=== PATIENT | male | born 1960 | race Caucasian/White ===

== ENCOUNTER → 2017-01-17 | Outpatient (CLI) | payer BC | END | disposition home or self-care (01) | LOC: LABWHC1 09:00 | PROVIDERS: ATTEND Orthopaedic Surgery Orthopaedic Surgery of the Spine | DX: Z01.812 Encounter for preprocedural laboratory examination (principal) | CPT/HCPCS: 86850; 86900; 86901 ==

== ENCOUNTER → 2017-02-11 | Outpatient (CLI) | payer BC ==
[2017-02-11 11:16] LABS: Basophils # (A) 0.1 k/uL (0-0.2); Basophils % (A) 1 %; Eosinophils # (A) 0.4 k/uL (0-0.7); Eosinophils % (A) 4 %; HCT 49.7 % (39.0-53.0); HGB 16.1 gm/dL (13.0-17.5); Lymphocytes # (A) 1.2 k/uL (1.0-4.8); Lymphocytes % (A) 10 %; MCH 31.2 pg (25.0-35.0); MCHC 32.4 g/dL (31.0-37.0); MCV 96.2 fL (80.0-100.0); Mean Platelet Volume 6.4; Monocytes # (A) 0.6 k/uL (0-1.0); Monocytes % (A) 5 %; Neutrophils % (A) 79 %; Platelet Count 365 k/uL (150-450); RBC 5.17 m/uL (4.30-5.90); RDW 12.7 % (11.5-15.5); WBC 11.3 k/uL (3.8-10.6)
[2017-02-11 11:17] LABS: Anion Gap 9 mmol/L; Blood Urea Nitrogen 20 mg/dL (9-20); Carbon Dioxide 29 mmol/L (22-30); Chloride 97 mmol/L (98-107); Glucose 99 mg/dL (74-99); Potassium 5.5 mmol/L (3.5-5.1); Sodium 135 mmol/L (137-145)
[2017-02-11 11:18] LABS: INR 1.1 (<1.2); Partial Thromboplastin Time 25.7 sec (22.0-30.0); Prothrombin Time 10.4 sec (9.0-12.0)
== END | disposition home or self-care (01) ==
LOC: LABPAT 10:38
PROVIDERS: ATTEND Orthopaedic Surgery Orthopaedic Surgery of the Spine
DX: Z01.812 Encounter for preprocedural laboratory examination (principal); M79.81 Nontraumatic hematoma of soft tissue
CPT/HCPCS: 80048; 85025; 85610; 85730

== ENCOUNTER 2017-02-12 14:05 | Day surgery (SDC) | payer BC ==
[~2017-02-12 14:05] MED LIST: BACITRACIN 50,000 UNIT, POLYMYXIN B 500,000 UNIT in SODIUM CHLORIDE 0.9% IRRIGATIO 1,00... IRRIGATION ONE; ceFAZolin IN SWFI 2 GM/20 ML SYRINGE IVP ONE
[2017-02-12] MEDS ORDERED: CLINDAMYCIN 900 MG in DEXTROSE 5% IN WATER 50 ML IVPB ONE ×2 (14:30)
[2017-02-12] MEDS ORDERED: LIDOCAINE 1% 20 ML VIAL (10MG/ML) FOR IV START INTRADERMA ONE (14:53)
[2017-02-12] MEDS ORDERED: LACTATED RINGERS 1,000 ML IV ONE ×2 (14:55→16:56)
[2017-02-12] MEDS ORDERED: ONDANSETRON 4 MG/2 ML VIAL IVP STA (15:20)
[2017-02-12] MEDS ORDERED: DEXAMETHASONE SOD PHOSPHATE 10 MG/ML 1 ML VIAL IV STA (15:24)
[2017-02-12] MEDS ORDERED: fentaNYL (PF) 50 MCG/ML 2 ML AMP ONE (16:29)
[2017-02-12] MEDS ORDERED: MIDAZOLAM 2 MG/2 ML VIAL ONE (16:29)
[2017-02-12] MEDS ORDERED: SUCCINYLCHOLINE CHLORIDE 100 MG/5 ML SYR IV ONE (16:29)
[2017-02-12] MEDS ORDERED: PROPOFOL 10 MG/ML 20 ML VIAL IV ONE (16:29)
[2017-02-12] MEDS ORDERED: HYDROmorphone (PF) 1 MG/ML ONE (16:29)
[2017-02-12] MEDS ORDERED: LIDOCAINE 1% INJ 10MG/ML (20 ML MDV) ONE (16:29)
[2017-02-12] MEDS ORDERED: HYDROmorphone 1 MG/ML 1 ML SYRINGE IVP PRN ×2 (17:17)
[2017-02-12] MEDS ORDERED: DIAZEPAM 5 MG TAB PO PRN (17:17)
[2017-02-12] MEDS ORDERED: BENZOCAINE/MENTHOL LOZENG 1 EACH LOZENGE MUCOUS MEM PRN (17:17)
[2017-02-12] MEDS ORDERED: HYDROcodone/APAP 5-325MG 1 EACH TAB PO PRN (17:18)
[2017-02-12] MEDS ORDERED: ACETAMINOPHEN TAB 325 MG TAB PO PRN (17:18)
[2017-02-12] MEDS ORDERED: ONDANSETRON 4 MG/2 ML VIAL IVP PRN (17:18)
[2017-02-12] MEDS ORDERED: IBUPROFEN 800 MG TAB PO PRN (17:19)
[2017-02-12] MEDS ORDERED: SODIUM CHLORIDE 0.9% 1,000 ML IV SCH (17:30)
--- NOTE | 2017-02-12 17:41 | P.OP ---
Date of Procedure: 02/12/17 Preoperative Diagnosis: Postoperative localized hematoma at anterior cervical neck incision site status post anterior cervical discectomy and fusion on 01/29/2017 Postoperative Diagnosis: Same Anesthesia: GETA Pathology: other (Deep cultures sent to microbiology) Condition: stable Disposition: PACU Description of Procedure: BRIEF OPERATIVE NOTE Preoperative Diagnosis: Postoperative localized anterior cervical hematoma at anterior cervical spine incision site status post anterior cervical discectomy and fusion 01/29/2017 Postoperative Diagnosis: Same Procedure: Evacuation of hematoma anterior cervical spine, deep Irrigation Excisional debridement of denuded tissue at anterior cervical spine wound Surgeon: Dr. Ling Packaging Machine Operator: Mitchel HENDRICKS Anesthesia: General anesthesia Estimated blood loss: Less than 10 mL Complications: None apparent Components implanted: None Specimen: Deep culture sent to [facility] Disposition: To recovery room in good stable condition. OPERATIVE INDICATIONS The patient has had long-standing issues in their neck and upper extremities, and he underwent intracervical discectomy and fusion on 01/29/2017 as per his operative note for his cervical stenosis with disc herniation and upper extremity radiculopathy. The night of his surgery he had some swelling at his anterior cervical spine which resolved quickly after a dose of steroid medication. He was able to be discharged postoperative day 1 from his surgery and was doing fairly well but had some recurrence of his swelling approximately 1 week ago and then spontaneous drainage with clear blood-tinged fluid. This resolved the swelling he was not having problems in his neck or problems with his swallowing. He is not having any new problems his upper extremity. He is not having any significant changes in his swelling or any problems with breathing. We continue to monitor his local wound area and he had initial resolution. 2 days ago he had some increased swelling and recurrent drainage of a small amount of blood-tinged serous fluid. He was seen yesterday and we felt that it was best to go ahead to do aggressive evacuation of hematoma with washout of the area and exploration. The patient has been through conservative treatment. We discussed various treatment options including surgery, and the patient wishes to proceed with surgery We discussed the risk, patient's alternatives and benefits of surgery including but not limited to, risk of bleeding risk of infection, risk of need for further surgery, risk of decreased , loss of motion, muscle function, nerve damage, paralysis, heart attack, and . OPERATIVE SUMMARY After discussing all the risks, patient alternatives and benefits at length, the patient elected to proceed with surgical intervention, signed informed consent, and presented for their procedure. The patient was seen and examined in the preoperative holding area and the surgical site was marked. The patient was given antibiotics and brought to the operating room. The patient was positioned on the operating room table in a supine position being careful to pad any bony prominences and pressure points. The patient was sedated and intubated by anesthesia in standard fashion. Once the airway and C- spine were stabilized the patient's arms were padded and tucked at her side. The head was placed in a donut pad with the neck in good neutral alignment and position. We were careful to maintain the patient's cervical spine and good neutral alignment and position throughout. The patient was prepped and draped in a normal standard fashion. An appropriate timeout and keystone protocol performed. We were able to proceed with the surgery. The local wound area was infiltrated with local anesthetic. An incision was made transversely approximately 2-1/2 cm over the appropriate levels utilizing the previous incision site. Immediately under the skin there was some serous fluid and some evidence of hematoma which articulated. I was able take a deep culture and the platysma was split to achieve deep culture of the area. Was no evidence of purulence. There was no pus. There is no foul odor. There is no persistent bleeding. There is no persistent drainage. I was able to bluntly dissect down to the area. There is no evidence of any fluid collection at anterior cervical spine. There is no evidence of fluid collection at the plate. There is no drainage from the spine itself. There is no evidence of CSF leak. There is no pus. I was able to divide area of any denuded tissue area portions of soft tissue removed to allow improved healing at the site. I did not find any pus or any further fluid collections. I was able to proceed with closure. The subcutaneous tissue was closed with 3-0 PDS suture. The subcuticular tissue was closed with absorbable suture 3-0 PDS. The wound was cleaned and dried and dressed appropriately. The patient was woken up by anesthesia, extubated, transferred back gently to their hospital bed and brought to the recovery room in good stable condition. The patient will bable to be discharged from the hospital after appropriate postoperative care, medical management and monitoring. We will continue to follow them closely about the postoperative course Closely on an outpatient basis.
[2017-02-12] MEDS ORDERED: NON-FORMULARY DRUG (Fluticasone/Salmeterol [Advair 250-50 Diskus] 1 INHALATION) PO SCH (20:00)
[2017-02-12 23:02] VITALS: BMI 26.8
[2017-02-12 23:29] VITALS: BP 106/60; PULSE 90; RESP 16; TEMP 96.8
[2017-02-13] MEDS ORDERED: CLINDAMYCIN 900 MG in DEXTROSE 5% IN WATER 50 ML IVPB SCH ×2
[2017-02-13] MEDS ORDERED: SENNOSIDES-DOCUSATE SODIUM 1 EACH TAB PO SCH (09:00)
[2017-02-13] MEDS ORDERED: TAMSULOSIN 0.4 MG CAP.ER.24H PO SCH (09:00)
[2017-02-13] MEDS ORDERED: POTASSIUM PO SCH (09:00)
[2017-02-13] MEDS ORDERED: NON-FORMULARY DRUG (Rosuvastatin Calcium [Crestor] 20 MG) PO SCH (09:00)
[2017-02-13] MEDS ORDERED: METOPROLOL TARTRATE 25 MG TAB PO SCH (09:00)
[2017-02-13] MEDS ORDERED: ASPIRIN 325 MG TAB PO SCH (09:00)
[2017-02-13] MEDS ORDERED: LISINOPRIL 20 MG TAB PO SCH (09:00)
[2017-02-13] MEDS ORDERED: NON-FORMULARY DRUG (Cholecalciferol (Vitamin D3) [Vitamin D3] 2,000 UNIT) PO SCH (09:00)
== END 2017-02-12 18:35 | disposition home or self-care (01) ==
LOC: OR 14:05
PROVIDERS: ATTEND Orthopaedic Surgery Orthopaedic Surgery of the Spine
DX: M96.840 Postprocedural hematoma of a musculoskeletal structure following a musculoskeletal system procedure (principal); Z98.1 Arthrodesis status; M50.11 Cervical disc disorder with radiculopathy, high cervical region; M50.21 Other cervical disc displacement, high cervical region; M48.02 Spinal stenosis, cervical region; I11.9 Hypertensive heart disease without heart failure; E78.5 Hyperlipidemia, unspecified; I25.10 Atherosclerotic heart disease of native coronary artery without angina pectoris; Z95.5 Presence of coronary angioplasty implant and graft; N40.0 Benign prostatic hyperplasia without lower urinary tract symptoms; M19.90 Unspecified osteoarthritis, unspecified site; K21.9 Gastro-esophageal reflux disease without esophagitis; Z79.2 Long term (current) use of antibiotics; Z79.1 Long term (current) use of non-steroidal anti-inflammatories (NSAID); Z79.899 Other long term (current) drug therapy; Z79.51 Long term (current) use of inhaled steroids; Z79.82 Long term (current) use of aspirin; Z87.891 Personal history of nicotine dependence; Z88.1 Allergy status to other antibiotic agents
CPT/HCPCS: 84132; 87070; 87205; 87075; 11043; J2250; J1100; J2405; J2001; J3010; J1170; J0330; J2704

== ENCOUNTER → 2018-09-24 | Outpatient (CLI) | payer BC ==
[2018-09-24 13:09] LABS: HCT 43.2 % (39.0-53.0); HGB 14.9 gm/dL (13.0-17.5); MCHC 34.5 g/dL (31.0-37.0); MCV 95.8 fL (80.0-100.0); Mean Platelet Volume 6.7; Platelet Count 302 k/uL (150-450); RBC 4.51 m/uL (4.30-5.90); RDW 14.2 % (11.5-15.5); WBC 6.5 k/uL (3.8-10.6)
[2018-09-24 14:57] LABS: Erythrocyte Sedimentation Rate 3 mm/hr (0-15)
== END | disposition home or self-care (01) ==
LOC: LABWHC1 12:04
PROVIDERS: ATTEND Ophthalmology
DX: G45.3 Amaurosis fugax (principal); H53.149 Visual discomfort, unspecified
CPT/HCPCS: 36415; 85027; 85652; 86140

== ENCOUNTER 2019-06-13 11:14 | Emergency (ER) | payer BC ==
[2019-06-13 11:20] VITALS: BP 164/101; PULSE 83; RESP 18; TEMP 98
--- NOTE | 2019-06-13 11:25 | ED ---
General Adult HPI - General Chief complaint: Extremity Injury, Upper Stated complaint: Rt hand injury Time Seen by Provider: 06/13/19 11:21 Source: patient Mode of arrival: ambulatory Limitations: no limitations - History of Present Illness Initial comments: Dictation was produced using [employer] dictation software. please excuse any grammatical, word or spelling errors. This patient was cared for during a federal and state declared state of emergency secondary to Covid 19 Chief Complaint: 59-year-old male presents with right hand injury. History of Present Illness: This 59-year-old male presents today with right hand pain. Patient states that he was carrying tools when he tripped. He tried to catch his fall. Patient states he reached out to try to brace his fall. He states he hyperextended his middle 3 digits. States that he has significant pain especially to the knuckle at the third digit. Patient stable to move. Den ies any numbness, paresthesias. He has no wrist pain. The ROS documented in this emergency department record has been reviewed and confirmed by me. Those systems with pertinent positive or negative responses have been documented in the HPI. All other systems are other negative and/or noncontributory. PHYSICAL EXAM: General Impression: Alert and oriented x3, not in acute distress HEENT: Normocephalic atraumatic, extra-ocular movements intact, pupils equal and reactive to light bilaterally, mucous membranes moist. Cardiovascular: Heart regular rate and rhythm Chest: Able to complete full sentences, no retractions, no tachypnea Abdomen: abdomen soft, non-tender, non-distended, no organomegaly Musculoskeletal: Pulses present and equal in all extremities, no peripheral edema Right hand: Decreased active range of motion of flexion of the third digit., No wrist tenderness. No pain over the scaphoid tubercle Motor: no focal deficits noted Neurological: CN II-XII grossly intact, no focal motor or sensory deficits noted Skin: Intact with no visualized rashes Psych: Normal affect and mood ED course: 59-year-old male presents with hand pain after fall. Vital signs upon arrival are within acceptable limits. X-rays unremarkable. The patient likely secondary to digit sprain. Patient clear for discharge. Advised follow-up with primary care physician if he develops persistent pain. - Related Data Home Medications Medication Instructions Recorded Confirmed Aspirin 325 mg PO DAILY 11/27/16 02/12/17 Cholecalciferol (Vitamin D3) 2,000 unit PO DAILY 11/27/16 02/12/17 [Vitamin D3] Fluticasone/Salmeterol [Advair 1 inhalation PO RT-BID 11/27/16 02/12/17 250-50 Diskus] Lisinopril [Zestril] 20 mg PO DAILY 11/27/16 02/12/17 Metoprolol Tartrate [Lopressor] 25 mg PO DAILY 11/27/16 02/12/17 Potassium 297 mg PO DAILY 11/27/16 02/12/17 Rosuvastatin Calcium [Crestor] 20 mg PO DAILY 11/27/16 02/12/17 Tamsulosin HCl [Flomax] 0.8 mg PO DAILY 11/27/16 02/12/17 Clobetasol Propionate [Temovate 1 applic TOPICAL Q3D 01/20/17 02/12/17 0.05% Cream] Ibuprofen [Motrin] 800 mg PO Q8HR PRN 01/29/17 02/12/17 Previous Rx's Medication Instructions Recorded HYDROcodone/APAP 5-325MG [Trimble 1 tab PO Q8HR PRN #60 tab 02/12/17 5-325] Allergies Allergy/AdvReac Type Severity Reaction Status Date / Time cefazolin [From Kefzol] Allergy Swelling Verified 06/13/19 11:20 LYCRA AdvReac IN Uncoded 06/13/19 11:20 WAISTBANDS, TURN SKIN RED Review of Systems ROS Statement: Those systems with pertinent positive or pertinent negative responses have been documented in the HPI. ROS Other: All systems not noted in ROS Statement are negative. Past Medical History Past Medical History: Coronary Artery Disease (CAD), Eye Disorder, Hypertension, Respiratory Disorder, Skin Disorder Additional Past Medical History / Comment(s): HX LONG-TERM LUNG INFECTION IN PAST. HX DETACHED RETINA LT EYE; LT CATARACT. SL RASH ANTERIOR FEET, ONGOING. History of Any Multi-Drug Resistant Organisms: None Reported Past Surgical History: Back Surgery, Heart Catheterization With Stent, Hernia Repair, Orthopedic Surgery Additional Past Surgical History / Comment(s): LT ROTATOR CUFF REPAIR. 3 RETINAL SURG LT EYE, 1 LASER LT EYE.; Cervical fusion 01/26 Past Anesthesia/Blood Transfusion Reactions: No Reported Reaction Date of Last Stent Placement:: 2006-09 Past Psychological History: No Psychological Hx Reported Smoking Status: Former smoker Past Alcohol Use History: Occasional Past Drug Use History: None Reported - Past Family History Mother Family Medical History: Cancer Additional Family Medical History / Comment(s): SKIN CA. General Exam Limitations: no limitations Course Vital Signs 06/13/19 11:17 Temperature 98.0 F Pulse Rate 83 Respiratory 18 Rate Blood Pressure 164/101 O2 Sat by Pulse 99 Oximetry Disposition Clinical Impression: Hand sprain Disposition: HOME SELF-CARE Condition: Good Instructions (If sedation given, give patient instructions): Hand Sprain (ED) Is patient prescribed a controlled substance at d/c from ED?: No Referrals: Nonstaff,Physician [Primary Care Provider] - 1-2 days Time of Disposition: 12:05
--- NOTE | 2019-06-13 11:54 | XR ---
EXAMINATION TYPE: XR hand complete RT , 3 VIEWS DATE OF EXAM ORDERED: 06/13/2019 HISTORY: hand pain. COMPARISON: None. FINDINGS: No fracture, dislocation or other acute osseous lesion is seen. IMPRESSION: NO ACUTE OSSEOUS LESION.
[2019-06-13] MEDS ORDERED: ACET/COD 300 MG/30 MG STARTER PACK 6 TAB BTL PO STA (12:05)
== END 2019-06-13 12:28 | disposition home or self-care (01) ==
LOC: EC 11:14
DX: S63.91XA Sprain of unspecified part of right wrist and hand, initial encounter (principal); I25.10 Atherosclerotic heart disease of native coronary artery without angina pectoris; I10 Essential (primary) hypertension; Z79.82 Long term (current) use of aspirin; Z79.899 Other long term (current) drug therapy; Z79.51 Long term (current) use of inhaled steroids; Z88.1 Allergy status to other antibiotic agents; Z88.8 Allergy status to other drugs, medicaments and biological substances; Z87.891 Personal history of nicotine dependence; W01.0XXA Fall on same level from slipping, tripping and stumbling without subsequent striking against object, initial encounter
CPT/HCPCS: 99283

== ENCOUNTER → 2020-01-04 | Outpatient (CLI) | payer BC | END | disposition home or self-care (01) | LOC: LABWHC1 15:58 | PROVIDERS: ATTEND Family Medicine | DX: J44.9 Chronic obstructive pulmonary disease, unspecified (principal); J06.9 Acute upper respiratory infection, unspecified; R05 Cough | CPT/HCPCS: U0003; C9803 ==

== ENCOUNTER → 2020-01-13 | Outpatient (CLI) | payer BC ==
--- NOTE | 2020-01-13 13:16 | XR ---
EXAMINATION TYPE: XR chest 2V DATE OF EXAM: 01/13/2020 COMPARISON: 12/27/2016 HISTORY: 59-year-old male COVID positive, cough TECHNIQUE: PA and lateral views FINDINGS: ACDF hardware. Heart normal size. Aorta and pulmonary vasculature within normal limits. Mild patchy i nterstitial densities in the lower lungs. Mild hyperinflation. IMPRESSION: Mild patchy interstitial infiltrates in the lower lungs, new from 2017. This could reflect sequela of COVID pneumonia.
== END | disposition home or self-care (01) ==
LOC: RADXRMAIN 11:10
PROVIDERS: ATTEND Family Medicine
DX: R91.8 Other nonspecific abnormal finding of lung field (principal); U07.1 COVID-19
CPT/HCPCS: 71046

== ENCOUNTER 2020-06-02 08:07 | Day surgery (SDC) | payer BC ==
[2020-05-31 11:03] VITALS: BMI 24.3
[~2020-06-02 08:07] MED LIST changes: -BACITRACIN 50,000 UNIT, POLYMYXIN B 500,000 UNIT in SODIUM CHLORIDE 0.9% IRRIGATIO 1,00... IRRIGATION ONE; +LACTATED RINGERS 1,000 ML IV SCH; +MOXIFLOXACIN HCL 0.5% DROPS 3 ML BTL OP PRN; +TETRACAINE 0.5% OPHTH (PF) DROPS 4 ML BTL OP PRN; +TIMOLOL 0.5% OPHTH DROPS 5 ML BTL OP PRN; -ceFAZolin IN SWFI 2 GM/20 ML SYRINGE IVP ONE
[2020-06-02] MEDS: CYCLOPENTOLATE 1% OPHTH SOLN 2 ML BTL OP PRN ×3 (08:30→08:45)
[2020-06-02] MEDS: PHENYLEPHRINE 2.5% OPHTH DRP 2ML OP PRN ×3 (08:33→08:50)
[2020-06-02 08:43] VITALS: TEMP 98
[2020-06-02] MEDS ORDERED: MIDAZOLAM 2 MG/2 ML VIAL ONE (09:22)
[2020-06-02] MEDS ORDERED: fentaNYL (PF) 50 MCG/ML 2 ML AMP ONE (09:22)
[2020-06-02] MEDS ORDERED: EPINEPHrine (PF) 0.3 ML in BALANCED SALT IRRIG SOLN COMB2 500 ML IRRIGATION ONE (09:23)
[2020-06-02] MEDS ORDERED: BALANCED SALT IRRIG SOLN COMB2 15 ML IRRIG.SOLN INTRAOCULA ONE (09:25)
[2020-06-02] MEDS ORDERED: HYALURONATE SODIUM INTRAOCULAR 1 EACH SYRINGE (12MG/ML) INTRAOCULA ONE (09:25)
[2020-06-02] MEDS ORDERED: LIDOCAINE 1% (PF) 10MG/ML VIAL MISCELLANE ONE (09:26)
--- NOTE | 2020-06-02 09:51 | P.OP ---
Date of Procedure: 06/02/20 Preoperative Diagnosis: NS Postoperative Diagnosis: same Procedure(s) Performed: PIOL, OD Implants: [id number] 18.00 Anesthesia: MAC Surgeon: Fernando Alvarez Pathology: none sent Condition: stable Disposition: same day Indications for Procedure: blurry Operative Findings: no complications
[2020-06-02 10:00] VITALS: RESP 16
[2020-06-02 10:04] VITALS: BP 108/74; PULSE 81
--- NOTE | 2020-06-02 23:25 | OP ---
OPERATIVE REPORT DATE OF SURGERY: 06/02/2020. PROCEDURE: Phacoemulsification of cataract and intraocular lens implant of the right eye. PREOPERATIVE DIAGNOSIS: Nuclear sclerosis and exposure to Flomax. POSTOPERATIVE DIAGNOSIS: Nuclear sclerosis and exposure to Flomax. SURGEON: Dr. Fernando Alvarez. ANESTHESIA: Topical. ESTIMATED BLOOD LOSS: None. SPECIMEN TAKEN: None. NARRATIVE: After obtaining the appropriate consent, the patient was brought to the operating room. There he was placed under cardiac monitoring, prepped and draped in the usual sterile manner. He was approached from his right temporal side and at the 11 o'clock position an MVR blade was used to create a paracentesis port. Through this opening 1% xylocaine MPF with 1:1000 epinephrine MPF and balanced salt solution in a ratio of 1:2:1 was instilled into the anterior chamber. This was followed by stabilization of the anterior chamber with Amvisc. At the 9 o'clock position a 2.5 mm keratome was used to create a self-sealing corneal flap incision. Through this opening a cystotome was introduced to begin a continuous tear capsulorrhexis which was then completed using the Utrata forceps. Hydrodissection and hydrodelineation of the lens was accomplished with balanced salt solution. Phacoemulsification of the lens utilizing phaco chop was accomplished in 10.17 seconds at 12% power. Additional ___med-mix__ was instilled into the anterior chamber. This was followed by removal of the remaining cortex under irrigation and aspiration as well as careful polishing of the posterior capsule in the capsule vacuum mode. Additional Amvisc was then used to stabilize the capsular bag and a Bausch and Lomb MX 60E 18.0 diopter posterior chamber intraocular lens was then injected into the capsular bag without difficulty. The remaining viscoelastic was removed from in and around the intraocular lens. The eye was then brought to normal intraocular pressure through the paracentesis port with balanced salt solution. He then received 2 drops of 0.5% Timolol followed by 2 drops of moxifloxacin and was then lightly patched and shielded in the usual manner. There were no complications in the procedure. He tolerated the procedure well and was returned to Outpatient Recovery in good condition. MMODL / IJN: [id number] / [facility]ENTERLou
== END 2020-06-02 10:18 | disposition home or self-care (01) ==
LOC: OR 08:07
PROVIDERS: ATTEND Ophthalmology
DX: H25.11 Age-related nuclear cataract, right eye (principal); H00.023 Hordeolum internum right eye, unspecified eyelid; H00.026 Hordeolum internum left eye, unspecified eyelid; H35.413 Lattice degeneration of retina, bilateral; H43.391 Other vitreous opacities, right eye; H53.19 Other subjective visual disturbances; H53.149 Visual discomfort, unspecified; H52.12 Myopia, left eye; I25.10 Atherosclerotic heart disease of native coronary artery without angina pectoris; N40.0 Benign prostatic hyperplasia without lower urinary tract symptoms; J44.9 Chronic obstructive pulmonary disease, unspecified; I10 Essential (primary) hypertension; E78.5 Hyperlipidemia, unspecified; Z98.42 Cataract extraction status, left eye; Z96.1 Presence of intraocular lens; Z86.69 Personal history of other diseases of the nervous system and sense organs; Z87.891 Personal history of nicotine dependence; Z98.890 Other specified postprocedural states; Z82.49 Family history of ischemic heart disease and other diseases of the circulatory system; Z80.8 Family history of malignant neoplasm of other organs or systems; Z79.82 Long term (current) use of aspirin; Z79.51 Long term (current) use of inhaled steroids; Z79.899 Other long term (current) drug therapy; Z88.1 Allergy status to other antibiotic agents
CPT/HCPCS: 66984; C1780; J2250; J0171; J3010; J2001

== ENCOUNTER → 2022-07-22 | Outpatient (CLI) | payer BC ==
--- NOTE | 2022-07-24 22:42 | MR ---
EXAMINATION TYPE: MR shoulder LT wo con DATE OF EXAM: 07/22/2022 COMPARISON: No radiographic correlation available HISTORY: 62-year-old male M25.512, left shoulder pain TECHNIQUE: Multiplanar, multisequence imaging of the left shoulder is performed without contrast. FINDINGS: Interstitial tear of the intracapsular portion of the long head biceps tendon. The extracapsular port ion remains a peripherally situated along the bicipital groove but with moderate diffuse synovial flu id. There is marked heterogeneity of the subscapularis tendon. Suspect a large partial-thickness tear of the superior half fibers and heterogeneous tendinosis with thickening of the inferior half fibers. At least moderate degenerative change at the AC joint but with bursal effusion dissecting into the dharmesh int space. The large bursal effusion is contiguous with the underlying glenohumeral joint secondary to a large f ull-thickness tear of the entire supraspinatus tendon extending back to involve at least half of the infraspinatus tendon. Tear measures 3.7 cm long with stump retracted to the level of the acromion and measures 3.5 cm AP. The intact posterior infraspinatus tendon fibers are markedly heterogeneous. The presence of a suture anchor along the lateral aspect of the greater tuberosity indicates prior bowens rgical repair of the cuff. There is mild fatty infiltration of the infraspinatus muscle belly and minimal fatty streaking in the supraspinatus muscle belly. Moderate effusion within the posterior recess of the glenohumeral joint. Overall articular cartilage is maintained. However, there is a tear of the superior labrum extending back to involve the superior aspect of the posterior labrum. No paralabral cyst. No Hill-Sachs deformity or os acromiale. No suspicious bone marrow replacement. IMPRESSION: 1. Previous rotator cuff repair but with a large re-tear involving the entire supraspinatous tendon. Tear extends back to involve at least half of the infraspinatus tendon. Overall 3.7 cm of stump retra ction to the level of the acromion and measuring 3.5 cm AP. 2. Mild fatty atrophy of the infraspinatus muscle belly and minimal fatty streaks in the supraspinatu s muscle belly. 3. Severe subscapularis tendinosis with partial-thickness tear of the superior half fibers. The major ity of the tendon remains intact. 4. Large subacromial/subdeltoid bursal effusion communicating with the underlying glenohumeral joint also dissects up into the AC joint space. 5. Superior labral tear extending back to the superior aspect of the posterior labrum.
== END | disposition home or self-care (01) ==
LOC: RADMRIMAIN 21:45
PROVIDERS: ATTEND Orthopaedic Surgery
DX: M75.112 Incomplete rotator cuff tear or rupture of left shoulder, not specified as traumatic (principal); M67.814 Other specified disorders of tendon, left shoulder; M25.412 Effusion, left shoulder

== ENCOUNTER 2022-08-15 10:20 | Observation (INO) | payer BC ==
--- NOTE | 2022-08-15 10:40 | ED ---
Chest Pain HPI - General Chief Complaint: Chest Pain Stated Complaint: Cardio Dr sent over, Time Seen by Provider: 08/15/22 10:30 Source: patient, RN notes reviewed Mode of arrival: ambulatory Limitations: no limitations - History of Present Illness Initial Comments: Patient is 62-year-old male presenting to the ER with chief complaint of chest discomfort. Patient was seeing his orthopedic status post rotator cuff repair when he reported chest discomfort. 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 Patient reports low-grade fevers over the weekend. Patient states his chest discomfort started on 08/11/22. He also endorses associated left arm pain, left thigh pain and occasional peripheral edema. Patient states his chest discomfort is brought on by exertion in addition to shortness of breath. Patient states he took his aspirin this morning. - Related Data Home Medications Medication Instructions Recorded Confirmed Potassium 198 mg PO DAILY 11/27/16 08/15/22 Rosuvastatin Calcium [Crestor] 20 mg PO DAILY 11/27/16 08/15/22 Tamsulosin HCl [Flomax] 0.4 mg PO DAILY 11/27/16 08/15/22 Aspirin EC [Ecotrin Low Dose] 81 mg PO DAILY 08/15/22 08/15/22 Cholecalciferol [Vitamin D3 (25 25 mcg PO DAILY 08/15/22 08/15/22 Mcg = 1000 Iu)] HYDROcodone/APAP 7.5-325MG [[place] 1 - 2 tab PO Q6H PRN 08/15/22 08/15/22 7.5-325] Meloxicam [Mobic] 15 mg PO DAILY 08/15/22 08/15/22 Metoprolol Succinate [Metoprolol 25 mg PO DAILY 08/15/22 08/15/22 Succinate ER] [place]-3/Dha/Epa/Fish Oil [Fish Oil 1 cap PO DAILY 08/15/22 08/15/22 1,000 mg Softgel] Ondansetron Odt [Zofran Odt] 4 mg PO Q6H PRN 08/15/22 08/15/22 lisinopriL [Zestril] 10 mg PO DAILY 08/15/22 08/15/22 tadalafiL 20 mg PO DAILY PRN 07/06/23 07/06/23 Allergies Allergy/AdvReac Type Severity Reaction Status Date / Time cefazolin [From Kefzol] Allergy Swelling Verified 08/15/22 11:52 LYCRA AdvReac IN Uncoded 08/15/22 10:29 WAISTBANDS, TURN SKIN RED Review of Systems ROS Statement: Those systems with pertinent positive or pertinent negative responses have been documented in the HPI. ROS Other: All systems not noted in ROS Statement are negative. EKG Findings - EKG Comments: EKG Findings:: EKG performed at 10:42 sinus rhythm rate of 76 MI 149 QRS 83 QT/QTC 355/385 - EKG Results: EKG: interpreted by ROSHAN Past Medical History Past Medical History: Coronary Artery Disease (CAD), Eye Disorder, Hypertension, Prostate Disorder, Respiratory Disorder Additional Past Medical History / Comment(s): HX LONG-TERM LUNG INFECTION IN PAST, DETACHED RETINA LT EYE History of Any Multi-Drug Resistant Organisms: None Reported Past Surgical History: Back Surgery, Heart Catheterization With Stent, Hernia Repair, Orthopedic Surgery Additional Past Surgical History / Comment(s): GUILLE ROTATOR CUFF REPAIR. 7 RETINAL SURG LT EYE, Cervical fusion X3 Past Anesthesia/Blood Transfusion Reactions: No Reported Reaction Date of Last Stent Placement:: 2006- Past Psychological History: No Psychological Hx Reported Smoking Status: Former smoker Past Alcohol Use History: Heavy, Occasional Past Drug Use History: None Reported - Past Family History Mother Family Medical History: Cancer Additional Family Medical History / Comment(s): SKIN CA. Brother(s) Family Medical History: Coronary Artery Disease (CAD) Father Family Medical History: Coronary Artery Disease (CAD) General Exam Limitations: no limitations General appearance: alert, in no apparent distress Respiratory exam: Present: normal lung sounds bilaterally. Absent: respiratory distress, wheezes, rales, rhonchi, stridor Cardiovascular Exam: Present: regular rate, normal rhythm, normal heart sounds. Absent: systolic murmur, diastolic murmur, rubs, gallop, clicks Extremities exam: Present: normal inspection, full ROM, normal capillary refill. Absent: tenderness, pedal edema, joint swelling, calf tenderness Neurological exam: Present: alert, oriented X3, CN II-XII intact Psychiatric exam: Present: normal affect, normal mood Skin exam: Present: warm, dry, intact, normal color. Absent: rash Course Vital Signs 08/15/22 08/15/22 10:25 11:43 Temperature 97.8 F Pulse Rate 78 77 Respiratory 20 18 Rate Blood Pressure 112/78 119/84 O2 Sat by Pulse 97 95 Oximetry Chest Pain MDM - MDM Was pt. sent in by a medical professional or institution (, PA, NURSES SUPERINTENDENT, urgent care, hospital, or fdc...) When possible be specific @ -Orthopedics/cardiology Did you speak to anyone other than the patient for history (EMS, parent, family, police, friend...)? What history was obtained from this source @ -No Did you review nursing and triage notes (agree or disagree)? Why? @ -I reviewed and agree with nursing and triage notes Were old charts reviewed (outside hosp., previous admission, EMS record, old EKG, old radiological studies, urgent care reports/EKG's, fdc records)? Report findings @ -No old charts were reviewed Differential Diagnosis (chest pain, altered mental status, abdominal pain women, abdominal pain men, vaginal bleeding, weakness, fever, dyspnea, syncope, headache, dizziness, GI bleed, back pain, seizure, CVA, palpatations, mental health, musculoskeletal)? @ -Differential Chest Pain: Stable Angina, Unstable Angina, STEMI, NSTEMI Aortic Dissection, Pneumothorax, Musculoskeletal, Esophageal Spasm GERD, Cholecystitis, Pancreatitis, Zoster, this is not meant to be an all-inclusive list. ble EKG interpreted by me (3pts min.). @ -As above X-rays interpreted by me (1pt min.). @ -None done CT interpreted by me (1pt min.). @ -CT angiogram chest shows evidence of emphysema changes no evidence of PE, small nodule U/S interpreted by me (1pt. min.). @ -None done What testing was considered but not performed or refused? (CT, X-rays, U/S, labs)? Why? @ -None What meds were considered but not given or refused? Why? @ -None Did you discuss the management of the patient with other professionals (professionals i.e. , RUTHIE, NURSES SUPERINTENDENT, lab, RT, psych nurse, social services analyst, bellman captain, teacher, assault amphibious vehicle officer, family caseworker)? Give summary @ -No Was smoking cessation discussed for >3mins.? @ -No Was critical care preformed (if so, how long)? @ -No Were there social determinants of health that impacted care today? How? (Homelessness, low income, unemployed, alcoholism, drug addiction, transportat ion, low edu. Level, literacy, decrease access to med. care, snf, rehab)? @ -No Was there de-escalation of care discussed even if they declined (Discuss DNR or withdrawal of care, Hospice)? DNR status @ -No What co-morbidities impacted this encounter? (DM, HTN, Smoking, COPD, CAD, Cancer, CVA, ARF, Chemo, Hep., AIDS, mental health diagnosis, sleep apnea, morbid obesity)? @ -CAD, hypertension Was patient admitted / discharged? Hospital course, mention meds given and route, prescriptions, significant lab abnormalities, going to OR and other pertinent info. @ -Admitted patient has concerning cardiac symptoms with the cardiac history including exertional dyspnea, chest pain patient CT is negative for PE. Patient does see cardiology be admitted for cardiac rule out Undiagnosed new problem with uncertain prognosis? @ -No Drug Therapy requiring intensive monitoring for toxicity (Heparin, Nitro, Insulin, Cardizem)? @ -No Were any procedures done? @ -No Diagnosis/symptom? @ -Chest pain Acute, or Chronic, or Acute on Chronic? @ -acute Uncomplicated (without systemic symptoms) or Complicated (systemic symptoms)? @ -complicated Side effects of treatment? @ -No Exacerbation, Progression, or Severe Exacerbation? @ -No Poses a threat to life or bodily function? How? (Chest pain, [place], OR, pneumonia, PE, COPD, DKA, ARF, appy, cholecystitis, CVA, Diverticulitis, Homicidal, Suicidal, threat to staff... and all critical care pts) @ -yes patient at risk for cardiac arrest Disposition Clinical Impression: Chest pain Disposition: ADMITTED IP TO THIS [facility] Condition: Fair Time of Disposition: 12:29
[2022-08-15 11:03] LABS: Basophils % (A) 0 %; Eosinophils # (A) 0.2 k/uL (0-0.7); Eosinophils % (A) 2 %; HCT 43.9 % (39.0-53.0); HGB 14.4 gm/dL (13.0-17.5); Lymphocytes # (A) 0.7 k/uL (1.0-4.8); Lymphocytes % (A) 7 %; MCH 31.4 pg (25.0-35.0); MCHC 32.8 g/dL (31.0-37.0); MCV 95.8 fL (80.0-100.0); Mean Platelet Volume 7.2; Monocytes # (A) 0.8 k/uL (0-1.0); Monocytes % (A) 8 %; Neutrophils # (A) 7.8 k/uL (1.3-7.7); Neutrophils % (A) 80 %; Platelet Count 390 k/uL (150-450); RBC 4.58 m/uL (4.30-5.90); RDW 13.8 % (11.5-15.5); WBC 9.7 k/uL (3.8-10.6)
[2022-08-15 11:18] LABS: Partial Thromboplastin Time 26.5 sec (22.0-30.0); Prothrombin Time 10.6 sec (9.0-12.0)
[2022-08-15 12:00] LABS: ALT 27 U/L (4-49); AST 27 U/L (17-59); African American GFR (CKD) >90 (>60 ml/min/1.73 sqM); Albumin 4.1 g/dL (3.5-5.0); Alkaline Phosphatase 55 U/L (38-126); Anion Gap 14 mmol/L; Blood Urea Nitrogen 20 mg/dL (9-20); Calcium 9.8 mg/dL (8.4-10.2); Carbon Dioxide 20 mmol/L (22-30); Chloride 107 mmol/L (98-107); Glucose 93 mg/dL (74-99); Magnesium 2.3 mg/dL (1.6-2.3); Non-African American GFR(CKD) >90 (>60 ml/min/1.73 sqM); Sodium 141 mmol/L (137-145); Total Bilirubin 0.6 mg/dL (0.2-1.3); Total Protein 7.9 g/dL (6.3-8.2)
--- NOTE | 2022-08-15 12:00 | CT ---
EXAMINATION TYPE: CT chest angio for PE CT DLP: 482.6 mGycm, Automated exposure control for dose reduction was used. DATE OF EXAM: 08/15/2022 11:46 AM COMPARISON: 03/27/2010 radiograph CLINICAL INDICATION:Male, 62 years old with history of sob, cp; Shortness of breath and chest pain. R ecent shoulder surgery on 08/07/22. TECHNIQUE/CONTRAST: CTA scan of the thorax is performed with IV Contrast, patient injected with 100ml mL of Isovue 370, p ulmonary embolism protocol. MIP images are created and reviewed these are created on a separate work station.. FINDINGS: Pulmonary Artery: There is no evidence for a filling defect within the pulmonary vasculature to sugge st acute pulmonary embolism. The pulmonary artery mildly enlarged measuring up to 33 mm. Lungs/Pleura: Moderate to severe emphysema changes most proximal lung apices. No evidence of focal co nsolidation, pleural effusion or pneumothorax. Left upper lung 4 mm pulmonary nodule series 411 image 4 Airway: Large airways are patent. Heart: Heart is within normal limits for size. Vasculature: No evidence of aortic aneurysm. There is a 2 vessel aortic arch. There is scattered athe rosclerosis of the arterial vasculature. Mediastinum: No gross evidence of adenopathy. Musculoskeletal: No acute osseous abnormalities, mild multilevel disc degeneration changes throughout the spine. There is degeneration changes of the shoulders right greater than left. Fixation hardware in the cervical spine appears intact. Soft Tissues: Unremarkable. Lower neck: No significant findings. Upper Abdomen: No significant findings. IMPRESSION: 1. No evidence of pulmonary embolism. 2. Moderate to severe emphysema. 3. Pulmonary hypertension. 4. 4 mm left upper lobe pulmonary nodule. Consider yearly low-dose lung cancer screening for this nod ule and for surveillance given extensive emphysema changes.
[2022-08-15] MEDS ORDERED: NITROGLYCERIN SL TABS 0.4 MG TAB SUBLINGUAL PRN (12:55)
[2022-08-15] MEDS ORDERED: ACETAMINOPHEN TAB 325 MG TAB PO PRN (16:19)
[2022-08-15] MEDS ORDERED: NON FORMULARY DRUG (Tadalafil [Tadalafil] 20 MG Tablet) PO PRN (16:28)
--- NOTE | 2022-08-15 16:31 | P.HPIM ---
History of Present Illness H&P Date: 08/15/22 Patient is a 62-year-old male with history of hypertension, dyslipidemia presenting with chest pain. He recently had left shoulder rotator cuff surgery last week, and over the weekend he had couple of episodes of fever. During that time he also developed some chest tightness. He saw his orthopedic clinic today and continue to have some chest tightness mostly sternal, nonradiating, and decided to come to the hospital. Currently denies any chest pain. Denies any shortness of breath, abdominal pain, nausea, vomiting, urinary or bowel complaints. In the ED, Temperature was 97.8, pulse 78, respiratory rate 20, blood pressure 112/70, saturating at 97% on room air. WBC 9.7, hemoglobin 14.4, sodium 141, bicarb 20, creatinine 0.6, troponin negative. ProBNP 44, d-dimer 4.04. CTA shows no PE, moderate to severe emphysema, pulmonary hypertension, 4 mm left upper lobe pulmonary nodule. EKG shows normal sinus rhythm. Patient admitted for chest pain, cardiology consult. Pertinent positives and negatives as discussed in HPI, a complete review of systems was performed and all other systems are negative. Patient seen and examined at bedside. Vital signs reviewed General: nontoxic, no distress, appears at stated age Derm: warm, dry Head: atraumatic, normocephalic, symmetric Eyes: EOMI, no lid lag, anicteric sclera, pupils equal round reactive to light ENT: Nose and ears atraumatic Neck: No thyromegaly, supple Mouth: no lip lesion, mucus membranes moist Cardiovascular: S1S2 reg, no murmur, no edema Lungs: clear to auscultation bilateral, no rhonchi, no rales, no wheeze, no accessory muscle use Abdominal: soft, nontender to palpation, no guarding, no appreciable organomegaly Ext: no gross muscle atrophy, muscle strength muscle strength 5 out of 5 in all 4 extremities, no contractures Neuro: CN II-XII grossly intact Psych: Alert, oriented, appropriate affect Assessment/Plan: Active: Chest pain, rule out ACS Elevated d-dimer Moderate to severe emphysema Pulmonary hypertension 4 mm left upper lobe pulmonary nodule Recent left shoulder surgery History of hypertension History of dyslipidemia -Serial troponins, telemetry -EKG independently interpreted, no ST-T wave changes -Aspirin and statin -CTA negative for PE -Cardiology consulted -Without exacerbation of COPD -Outpatient follow-up for pulmonary nodule, will likely need repeat CT in the future -Continue home medications The patient is admitted with an anticipated less than 2 midnight stay as observation status for evaluation of chest pain. Surrogate decision-maker: Spouse CODE STATUS: Full code DVT prophylaxis: Lovenox Anticipated discharge date: Pending clinical course Anticipated discharge place: Pending clinical course A total of 55 minutes was spent on the care of this complex patient more than 50% of the time was spent in counseling and care coordination. Past Medical History Past Medical History: Coronary Artery Disease (CAD), Eye Disorder, Hypertension, Prostate Disorder, Respiratory Disorder Additional Past Medical History / Comment(s): HX LONG-TERM LUNG INFECTION IN PAST, DETACHED RETINA LT EYE History of Any Multi-Drug Resistant Organisms: None Reported Past Surgical History: Back Surgery, Heart Catheterization With Stent, Hernia Repair, Orthopedic Surgery Additional Past Surgical History / Comment(s): GUILLE ROTATOR CUFF REPAIR. 7 RETINAL SURG LT EYE, Cervical fusion X3 Past Anesthesia/Blood Transfusion Reactions: No Reported Reaction Date of Last Stent Placement:: 2006-09 Past Psychological History: No Psychological Hx Reported Smoking Status: Former smoker Past Alcohol Use History: Heavy, Occasional Past Drug Use History: None Reported - Past Family History Mother Family Medical History: Cancer Additional Family Medical History / Comment(s): SKIN CA. Brother(s) Family Medical History: Coronary Artery Disease (CAD) Father Family Medical History: Coronary Artery Disease (CAD) Medications and Allergies Home Medications Medication Instructions Recorded Confirmed Type Potassium 198 mg PO DAILY 11/27/16 08/15/22 History Rosuvastatin Calcium [Crestor] 20 mg PO DAILY 11/27/16 08/15/22 History Tamsulosin HCl [Flomax] 0.4 mg PO DAILY 11/27/16 08/15/22 History Aspirin EC [Ecotrin Low Dose] 81 mg PO DAILY 08/15/22 08/15/22 History Cholecalciferol [Vitamin D3 (25 25 mcg PO DAILY 08/15/22 08/15/22 History Mcg = 1000 Iu)] HYDROcodone/APAP 7.5-325MG [[place] 1 - 2 tab PO Q6H PRN 08/15/22 08/15/22 History 7.5-325] Meloxicam [Mobic] 15 mg PO DAILY 08/15/22 08/15/22 History Metoprolol Succinate [Metoprolol 25 mg PO DAILY 08/15/22 08/15/22 History Succinate ER] [place]-3/Dha/Epa/Fish Oil [Fish Oil 1 cap PO DAILY 08/15/22 08/15/22 History 1,000 mg Softgel] Ondansetron Odt [Zofran Odt] 4 mg PO Q6H PRN 08/15/22 08/15/22 History lisinopriL [Zestril] 10 mg PO DAILY 08/15/22 08/15/22 History tadalafiL 20 mg PO DAILY PRN 08/15/22 08/15/22 History Allergies Allergy/AdvReac Type Severity Reaction Status Date / Time cefazolin [From Kefzol] Allergy Swelling Verified 08/15/22 11:52 LYCRA AdvReac IN Uncoded 08/15/22 10:29 WAISTBANDS, TURN SKIN RED Physical Exam Vitals: Vital Signs Temp Pulse Resp BP Pulse Ox 08/15/22 11:43 77 18 119/84 95 08/15/22 10:25 97.8 F 78 20 112/78 97 Intake and Output 08/15/22 08/15/22 08/15/22 06:59 14:59 22:59 Other: Weight 80.739 kg Results CBC & Chem 7: 08/15/22 10:46 08/15/22 10:46 Labs: Abnormal Lab Results - Last 24 Hours (Table) 08/15/22 08/15/22 08/15/22 Range/Units 10:46 10:46 10:46 Neutrophils # 7.8 H (1.3-7.7) k/uL Lymphocytes # 0.7 L (1.0-4.8) k/uL D-Dimer 4.04 H (<0.60) mg/L FEU Carbon Dioxide 20 L (22-30) mmol/L
[2022-08-15] MEDS: HYDROcodone/APAP 7.5-325MG 1 EACH TAB PO PRN (18:50)
[2022-08-16] MEDS: HYDROcodone/APAP 7.5-325MG 1 EACH TAB PO PRN (02:18)
[2022-08-16] MEDS ORDERED: TAMSULOSIN 0.4 MG CAP.ER.24H PO SCH (09:00)
[2022-08-16] MEDS ORDERED: CHOLECALCIFEROL 25 MCG (1000 IU) TABLET PO SCH (09:00)
[2022-08-16] MEDS ORDERED: THIAMINE 100 MG TAB PO SCH (09:00)
[2022-08-16] MEDS ORDERED: ASPIRIN 325 MG TAB PO SCH (09:00)
[2022-08-16] MEDS ORDERED: METOPROLOL SUCCINATE (ER) 25 MG TAB.ER.24H PO SCH (09:00)
[2022-08-16] MEDS ORDERED: ENOXAPARIN 40 MG/0.4 ML SYRINGE SQ SCH (09:00)
[2022-08-16] MEDS ORDERED: ATORVASTATIN 40 MG TAB PO SCH (09:00)
[2022-08-16] MEDS ORDERED: NON FORMULARY DRUG (Omega-3/Dha/Epa/Fish Oil [Fish Oil 1,000 Mg Softgel] 1 EACH Capsule) PO SCH (09:00)
[2022-08-16] MEDS ORDERED: ASPIRIN 81 MG PO SCH (09:00)
[2022-08-16] MEDS ORDERED: lisinopriL 10 MG TAB PO SCH (09:00)
[2022-08-16 09:08] VITALS: BP 137/78; PULSE 83; RESP 16; TEMP 98.7
[2022-08-16 09:52] LABS: Chol/HDL Ratio 2.58 Ratio; LDL Cholesterol,Calculated 63.4 mg/dL (0.0-131.0); VLDL Calculation 14.36 mg/dL (5.00-40.00)
--- NOTE | 2022-08-16 11:11 | CA ---
Transthoracic Echo Report Name: Adrian Yepez Age: 62 Gender: M : 1960 Exam Date: 08/16/2022 09:57 Exam Location: [place] [facility] Ht (in): 70 Wt (lb): 178 Ordering Physician: Kristen Becker Attending/Referring Phys: [id number], Rosita Patient Experience Coordinator Radha [facility] Procedure CPT: Indications: LV function, CP Cardiac Hx: Technical Quality: Fair Contrast 1: Total Dose (mL): Contrast 2: Total Dose (mL): MEASUREMENTS (Male / Female) Normal Values 2D ECHO LV Diastolic Diameter PLAX 4.6 cm 4.2 - 5.9 / 3.9 - 5.3 cm LV Systolic Diameter PLAX 3.2 cm IVS Diastolic Thickness 1.1 cm 0.6 - 1.0 / 0.6 - 0.9 cm LVPW Diastolic Thickness 1.1 cm 0.6 - 1.0 / 0.6 - 0.9 cm LV Relative Wall Thickness 0.5 LVOT Diameter 2.0 cm Ascending Aorta Diameter 3.2 cm M-MODE Aortic Root Diameter MM 2.8 cm LA Systolic Diameter MM 4.1 cm LA Ao Ratio MM 1.5 AV Cusp Separation MM 1.9 cm DOPPLER AV Peak Velocity 156.2 cm/s AV Peak Gradient 9.8 mmHg AV Mean Velocity 111.3 cm/s AV Mean Gradient 5.5 mmHg AV Velocity Time Integral 28.9 cm LVOT Peak Velocity 127.8 cm/s LVOT Peak Gradient 6.5 mmHg LVOT Velocity Time Integral 22.0 cm LVOT Stroke Volume 70.9 cm??? LVOT Stroke Volume Index 35.7 ml/m??? LVOT Cardiac Index 2789.4 cm???/min???m??? AV Area Cont Eq vti 2.5 cm??? AV Area Cont Eq pk 2.6 cm??? Mitral E Point Velocity 68.4 cm/s Mitral A Point Velocity 71.9 cm/s Mitral E to A Ratio 1.0 MV Deceleration Time 230.4 ms LV E' Lateral Velocity 10.2 cm/s Mitral E to LV E' Lateral Ratio 6.7 LV E' Septal Velocity 7.2 cm/s Mitral E to LV E' Septal Ratio 9.5 TR Peak Velocity 282.2 cm/s TR Peak Gradient 31.9 mmHg Right Atrial Pressure 3.0 mmHg Pulmonary Artery Systolic Pressu 34.9 mmHg Right Ventricular Systolic Press 34.9 mmHg FINDINGS Left Ventricle Mildly increased left ventricular wall thickness. Mild concentric left ventricular hypertrophy. Left ventricular cavity size at the upper limits of normal. No obvious regional wall motion abnormalities. Left ventricular ejection fraction is estimated at 50-55%. Right Ventricle Mild right ventricular dilatation. Mild pulmonary hypertension. Right Atrium Mild right atrial dilatation. Left Atrium Normal left atrial size. Interatrial septal aneurysm. Mitral Valve Structurally normal mitral valve. Mild mitral regurgitation. Aortic Valve Trileaflet aortic valve. No aortic valve stenosis or regurgitation. Tricuspid Valve Structurally normal tricuspid valve. Mild tricuspid regurgitation. Pulmonic Valve Pulmonic valve not well visualized. Pericardium No pericardial effusion. Aorta Normal size aortic root and proximal ascending aorta. CONCLUSIONS Preserved LV size and systolic function Mildly dilated right ventricle Previewed by: Dr. Dawson Robertson MD (Electronically Signed) Final Date: 16 August 2022 11:10
--- NOTE | 2022-08-16 11:14 | P.CRDCN ---
History of Present Illness History of present illness: HISTORY OF PRESENT ILLNESS: This is a 62-year-old male with a past medical history significant for hypertension, hyperlipidemia, coronary artery disease with previous stenting in 2006, former nicotine dependence, and daily alcohol use. Patient follows with a armhole presser out of [place]. We have been asked to see the patient in consultation for chest pain. Patient examined at the bedside. Patient states that he had left shoulder surgery on Friday. He states that he has been having pain in his left arm and his left thigh. He states on Friday morning he had an episode of chest pain that lasted for about 10 minutes and then went away on its own. He reports on Friday he had another episode of chest pain that lasted for 25-30 minutes. The patient denies any chest pain or pressure at the time of examination. * EKG reveals sinus mechanism with no signs of acute ischemia * Chest CTA: No evidence of pulmonary embolism, moderate to severe emphysema, pulmonary hypertension, 4 mm left upper lobe pulmonary nodule * Laboratory data: WBC 9.7. Hemoglobin 14.4. Platelet count 390. D-dimer 4.04. Sodium 141. Potassium 4.0. BUN 20. Creatinine 0.86. Troponin negative 3. * Current home cardiac medications include aspirin 81 mg daily, lisinopril 10 mg daily, Crestor 20 mg daily, and metoprolol succinate 25 mg daily REVIEW OF SYSTEMS: At the time of my exam: CONSTITUTIONAL: Denies fever or chills. HEENT: Denies blurred vision, vision changes, or eye pain. Denies hemoptysis CARDIOVASCULAR: Denies chest pain. Denies orthopnea. Denies PND. Denies palpitations RESPIRATORY: Denies shortness of breath. GASTROINTESTINAL: Denies abdominal pain. Denies nausea or vomiting. HEMATOLOGIC: Denies bleeding disorders. GENITOURINARY: Denies any blood in urine. SKIN: Denies pruitis. Denies rash. PHYSICAL EXAM: VITAL SIGNS: Reviewed. GENERAL: Well-developed in no acute distress. HEENT: Head is normocephalic. Pupils are equal, round. Sclerae anicteric. Mucous membranes of the mouth are moist. Neck supple. No JVD or thyromegaly LUNGS: Respirations even and unlabored. Lungs essentially clear to auscultation bilaterally. HEART: Regular rate and rhythm. S1 and S2 heard. ABDOMEN: Soft. Nondistended. Nontender. EXTREMITIES: Normal range of motion. No clubbing or cyanosis. Peripheral pulses intact. No lower extremity edema NEUROLOGIC: Awake and alert. Oriented x 3. ASSESSMENT: Chest pain, atypical, troponin negative 3 Hypertension Hyperlipidemia Coronary artery disease with previous stenting in 2006, exact details unknown Former nicotine dependence Daily alcohol use PLAN: An acute coronary and has been ruled out Resume home cardiac medications No need to obtain echocardiogram per Dr. Robertson Patient may be discharged home today from a cardiac standpoint and follow-up with his primary armhole presser on an outpatient basis Nurse practitioner note has been reviewed by physician. Signing provider agrees with the documented findings, assessment, and plan of care. Past Medical History Past Medical History: Coronary Artery Disease (CAD), Eye Disorder, Hypertension, Pneumonia, Prostate Disorder, Respiratory Disorder Additional Past Medical History / Comment(s): HX LONG-TERM LUNG INFECTION IN PAST (PNA), DETACHED RETINA LT EYE History of Any Multi-Drug Resistant Organisms: None Reported Past Surgical History: Back Surgery, Heart Catheterization With Stent, Hernia Repair, Orthopedic Surgery Additional Past Surgical History / Comment(s): GUILLE ROTATOR CUFF REPAIR. 7 RETINAL SURG LT EYE, Cervical fusion X3, carpel tunnel release right wrist Past Anesthesia/Blood Transfusion Reactions: No Reported Reaction Date of Last Stent Placement:: 2006 Past Psychological History: No Psychological Hx Reported Smoking Status: Former smoker Past Alcohol Use History: Heavy Past Drug Use History: None Reported - Past Family History Mother Family Medical History: Cancer Additional Family Medical History / Comment(s): SKIN CA. Brother(s) Family Medical History: Coronary Artery Disease (CAD) Father Family Medical History: Coronary Artery Disease (CAD) Medications and Allergies Home Medications Medication Instructions Recorded Confirmed Type Potassium 198 mg PO DAILY 11/27/16 08/15/22 History Rosuvastatin Calcium [Crestor] 20 mg PO DAILY 11/27/16 08/15/22 History Tamsulosin HCl [Flomax] 0.4 mg PO DAILY 11/27/16 08/15/22 History Aspirin EC [Ecotrin Low Dose] 81 mg PO DAILY 08/15/22 08/15/22 History Cholecalciferol [Vitamin D3 (25 25 mcg PO DAILY 08/15/22 08/15/22 History Mcg = 1000 Iu)] HYDROcodone/APAP 7.5-325MG [[place] 1 - 2 tab PO Q6H PRN 08/15/22 08/15/22 History 7.5-325] Meloxicam [Mobic] 15 mg PO DAILY 08/15/22 08/15/22 History Metoprolol Succinate [Metoprolol 25 mg PO DAILY 08/15/22 08/15/22 History Succinate ER] [place]-3/Dha/Epa/Fish Oil [Fish Oil 1 cap PO DAILY 08/15/22 08/15/22 History 1,000 mg Softgel] Ondansetron Odt [Zofran Odt] 4 mg PO Q6H PRN 08/15/22 08/15/22 History lisinopriL [Zestril] 10 mg PO DAILY 08/15/22 08/15/22 History tadalafiL 20 mg PO DAILY PRN 08/15/22 08/15/22 History Allergies Allergy/AdvReac Type Severity Reaction Status Date / Time cefazolin [From Kefzol] Allergy Swelling Verified 08/15/22 11:52 LYCRA AdvReac IN Uncoded 08/15/22 10:29 WAISTBANDS, TURN SKIN RED Physical Exam Vitals: Vital Signs Temp Pulse Pulse Resp BP BP Pulse Ox 08/16/22 02:20 98.9 F 68 18 113/61 97 08/15/22 20:00 98.3 F 79 18 130/83 96 08/15/22 18:16 88 18 142/82 96 08/15/22 16:47 98 18 139/81 95 08/15/22 11:43 77 18 119/84 95 08/15/22 10:25 97.8 F 78 20 112/78 97 Intake and Output 08/15/22 08/16/22 08/16/22 22:59 06:59 14:59 Other: Voiding Method Toilet # Voids 1 2 Weight 80.739 kg Results 08/15/22 10:46 08/15/22 10:46 Cardiac Enzymes 08/15/22 08/15/22 08/15/22 Range/Units 10:46 10:46 21:30 AST 27 (17-59) U/L Troponin I <0.012 <0.012 (0.000-0.034) ng/mL 08/16/22 Range/Units 01:01 AST (17-59) U/L Troponin I <0.012 (0.000-0.034) ng/mL Coagulation 08/15/22 Range/Units 10:46 PT 10.6 (9.0-12.0) sec APTT 26.5 (22.0-30.0) sec CBC 08/15/22 Range/Units 10:46 WBC 9.7 (3.8-10.6) k/uL RBC 4.58 (4.30-5.90) m/uL Hgb 14.4 (13.0-17.5) gm/dL Hct 43.9 (39.0-53.0) % Plt Count 390 (150-450) k/uL Comprehensive Metabolic Panel 08/15/22 Range/Units 10:46 Sodium 141 (137-145) mmol/L Potassium 4.0 (3.5-5.1) mmol/L Chloride 107 (98-107) mmol/L Carbon Dioxide 20 L (22-30) mmol/L BUN 20 (9-20) mg/dL Creatinine 0.86 (0.66-1.25) mg/dL Glucose 93 (74-99) mg/dL Calcium 9.8 (8.4-10.2) mg/dL AST 27 (17-59) U/L ALT 27 (4-49) U/L Alkaline Phosphatase 55 (38-126) U/L Total Protein 7.9 (6.3-8.2) g/dL Albumin 4.1 (3.5-5.0) g/dL Current Medications Generic Name Dose Route Start Last Admin Trade Name Freq PRN Reason Stop Dose Admin Acetaminophen 650 mg 08/15/22 16:19 08/15/22 16:40 Acetaminophen Tab 325 Mg Tab PO 650 mg Q6HR PRN Administration Fever and/ or Pain Hydrocodone Bitart/Acetaminophen 1 each 08/15/22 16:28 08/16/22 02:18 Hydrocodone/Apap 7.5-325mg 1 Each Tab PO 1 each Q6H PRN Administration Pain Aspirin 81 mg 08/16/22 09:00 Aspirin 81 Mg PO DAILY [facility] Atorvastatin Calcium 40 mg 08/16/22 09:00 Atorvastatin 40 Mg Tab PO DAILY [facility] Cholecalciferol 25 mcg 08/16/22 09:00 Cholecalciferol 25 Mcg (1000 Iu) Tablet PO DAILY [facility] Enoxaparin Sodium 40 mg 08/16/22 09:00 Enoxaparin 40 Mg/0.4 Ml Syringe SQ DAILY [facility] Lisinopril 10 mg 08/16/22 09:00 Lisinopril 10 Mg Tab PO DAILY [facility] Metoprolol Succinate 25 mg 08/16/22 09:00 Metoprolol Succinate (Er) 25 Mg Tab.Er.24h PO DAILY [facility] Nitroglycerin 0.4 mg 08/15/22 12:55 Nitroglycerin Sl Tabs 0.4 Mg Tab SUBLINGUAL Q5M PRN Chest Pain Tamsulosin HCl 0.4 mg 08/16/22 09:00 Tamsulosin 0.4 Mg Cap.Er.24h PO DAILY [facility] Thiamine HCl 100 mg 08/16/22 09:00 Thiamine 100 Mg Tab PO DAILY [facility] Intake and Output 08/15/22 08/16/22 08/16/22 22:59 06:59 14:59 Other: Voiding Method Toilet # Voids 1 2 Weight 80.739 kg 08/15/22 10:46 08/15/22 10:46
--- NOTE | 2022-08-16 12:10 | P.DS ---
Providers Date of admission: 08/15/22 13:43 Expected date of discharge: 08/16/22 Attending physician: Kya Mcdonald MD Consults: 08/15/22 12:55 Consult Physician Urgent Consulting Provider: Erick Gilmore Consult Reason/Comments: chest pain Do you want consulting provider notified?: Yes Primary care physician: Lj Prior Hospital Course: Discharge Diagnosis: Chest pain, ACS ruled out Elevated d-dimer Moderate to severe emphysema Pulmonary hypertension 4 mm left upper lobe pulmonary nodule Recent left shoulder surgery History of hypertension History of dyslipidemia Hospital Course: 62-year-old male with history of hypertension, dyslipidemia presenting with chest pain. In the ED, Temperature was 97.8, pulse 78, respiratory rate 20, blood pressure 112/70, saturating at 97% on room air. WBC 9.7, hemoglobin 14.4, sodium 141, bicarb 20, creatinine 0.6, troponin negative. ProBNP 44, d-dimer 4.04. CTA shows no PE, moderate to severe emphysema, pulmonary hypertension, 4 mm left upper lobe pulmonary nodule. EKG shows normal sinus rhythm. Patient admitted for chest pain, cardiology consult. ACS ruled out. Echo shows preserved EF. Patient to follow-up with PCP and primary foxer. Patient seen and examined at bedside. Vital signs reviewed and stable. General: nontoxic, no distress, appears at stated age Derm: warm, dry, left shoulder incision appears clean, dry, intact Head: atraumatic, normocephalic, symmetric Eyes: EOMI, no lid lag, anicteric sclera Mouth: no lip lesion, mucus membranes moist Cardiovascular: S1S2 reg, no murmur Lungs: CTA bilateral, no rhonchi, no rales , no accessory muscle use Abdominal: soft, nontender to palpation, no guarding, no appreciable organomegaly Ext: no gross muscle atrophy, no edema, no contractures Neuro: CN II-XI grossly intact, no focal neuro deficits Psych: Alert, oriented, appropriate affect A total of 33 minutes of time were spent preparing this complex discharge summary. Patient was discharged on 08/16/22 1202. Patient Condition at Discharge: Stable Plan - Discharge Summary Discharge Rx Participant: Yes New Discharge Prescriptions: Continue Tamsulosin HCl [Flomax] 0.4 mg PO DAILY Rosuvastatin Calcium [Crestor] 20 mg PO DAILY Potassium 198 mg PO DAILY Cholecalciferol [Vitamin D3 (25 Mcg = 1000 Iu)] 25 mcg PO DAILY tadalafiL 20 mg PO DAILY PRN PRN Reason: E.D. [place]-3/Dha/Epa/Fish Oil [Fish Oil 1,000 mg Softgel] 1 cap PO DAILY Metoprolol Succinate [Metoprolol Succinate ER] 25 mg PO DAILY Ondansetron Odt [Zofran ODT] 4 mg PO Q6H PRN PRN Reason: Nausea lisinopriL [Zestril] 10 mg PO DAILY Meloxicam [Mobic] 15 mg PO DAILY Aspirin EC [Ecotrin Low Dose] 81 mg PO DAILY HYDROcodone/APAP 7.5-325MG [[place] 7.5-325] 1 - 2 tab PO Q6H PRN PRN Reason: Pain Discharge Medication List Potassium 198 mg PO DAILY 11/27/16 [History] Rosuvastatin Calcium [Crestor] 20 mg PO DAILY 11/27/16 [History] Tamsulosin HCl [Flomax] 0.4 mg PO DAILY 11/27/16 [History] Aspirin EC [Ecotrin Low Dose] 81 mg PO DAILY 08/15/22 [History] Cholecalciferol [Vitamin D3 (25 Mcg = 1000 Iu)] 25 mcg PO DAILY 08/15/22 [History] HYDROcodone/APAP 7.5-325MG [[place] 7.5-325] 1 - 2 tab PO Q6H PRN 08/15/22 [History] Meloxicam [Mobic] 15 mg PO DAILY 08/15/22 [History] Metoprolol Succinate [Metoprolol Succinate ER] 25 mg PO DAILY 08/15/22 [History] [place]-3/Dha/Epa/Fish Oil [Fish Oil 1,000 mg Softgel] 1 cap PO DAILY 08/15/22 [History] Ondansetron Odt [Zofran ODT] 4 mg PO Q6H PRN 08/15/22 [History] lisinopriL [Zestril] 10 mg PO DAILY 08/15/22 [History] tadalafiL 20 mg PO DAILY PRN 08/15/22 [History] Follow up Appointment(s)/Referral(s): Lj Max DO [Primary Care Provider] - 1-2 days Patient Instructions/Handouts: Chest Pain (DC), Noncardiac Chest Pain (DC) Activity/Diet/Wound Care/Special Instructions: Please see your PCP and foxer. Yearly low-dose CT of chest to evaluate for nodule. Discharge Disposition: HOME SELF-CARE
== END 2022-08-16 12:15 | disposition home or self-care (01) ==
LOC: EC 10:20 → 6NMEDSUR 13:43
PROVIDERS: ADMIT Family Medicine; ATTEND Family Medicine
DX: R07.89 Other chest pain (principal); J43.9 Emphysema, unspecified; I25.10 Atherosclerotic heart disease of native coronary artery without angina pectoris; I11.9 Hypertensive heart disease without heart failure; I27.20 Pulmonary hypertension, unspecified; R79.89 Other specified abnormal findings of blood chemistry; R91.1 Solitary pulmonary nodule; E78.5 Hyperlipidemia, unspecified; N42.9 Disorder of prostate, unspecified; F10.90 Alcohol use, unspecified, uncomplicated; Z79.82 Long term (current) use of aspirin; Z79.1 Long term (current) use of non-steroidal anti-inflammatories (NSAID); Z79.899 Other long term (current) drug therapy; Z88.1 Allergy status to other antibiotic agents; Z95.5 Presence of coronary angioplasty implant and graft; Z98.1 Arthrodesis status; Z98.890 Other specified postprocedural states; Z87.891 Personal history of nicotine dependence; Z87.39 Personal history of other diseases of the musculoskeletal system and connective tissue; Z86.19 Personal history of other infectious and parasitic diseases; Z86.69 Personal history of other diseases of the nervous system and sense organs; Z82.49 Family history of ischemic heart disease and other diseases of the circulatory system; Z80.8 Family history of malignant neoplasm of other organs or systems
CPT/HCPCS: 99285; 36415; 93005; 93306; 85379; 83880; 80061; 80053; 83735; 84484 ×2; 85025; 85610; 85730; 71275; G0378 ×2; Q9967

== ENCOUNTER → 2023-02-04 | Outpatient (CLI) | payer BC ==
--- NOTE | 2023-02-04 12:29 | CT ---
EXAMINATION TYPE: CT chest wo con DATE OF EXAM: 02/04/2023 COMPARISON: 08/15/2022 HISTORY: nodule CT DLP: 429.4 mGycm. Automated Exposure Control for Dose Reduction was Utilized. TECHNIQUE: CT scan of the thorax is performed without IV contrast. FINDINGS: There is a 9.7 mm nodule abutting the major fissure on the right which has increased in size in the i nterval from 8.7 mm. It is suspicious for neoplasm. PET scan can might be useful for further evaluati on. There are additional scattered sub-6 mm nodules in the left lung. There is marked emphysematous change particularly in the upper lobes. There is no airspace consolidation or abnormal interstitial density. There is no pleural effusion, pleural thickening or pneumothorax. The great vessels chest are normal is no mediastinal, hilar or axillary adenopathy. Limited scanning through the upper abdomen reveals no gross abnormality. No focal osseous lesions are seen. IMPRESSION: 1. Lung RADS category 4B. Very suspicious for malignancy. PET scan or CT-guided fine-needle aspiratio n is recommended. 2. Marked emphysematous changes. 3. No acute cardiopulmonary disease.
== END | disposition home or self-care (01) ==
LOC: RADCTMAIN 08:23
PROVIDERS: ATTEND Family Medicine
DX: J43.9 Emphysema, unspecified (principal); R91.1 Solitary pulmonary nodule; E78.5 Hyperlipidemia, unspecified; I10 Essential (primary) hypertension
CPT/HCPCS: 71250

== ENCOUNTER → 2023-06-24 | Outpatient (CLI) | payer BC, MEDICARE ==
--- NOTE | 2023-06-25 12:20 | MR ---
EXAMINATION TYPE: MR shoulder LT wo con DATE OF EXAM: 06/24/2023 COMPARISON: Prior MRI left shoulder July 22, 2022 HISTORY: Left shoulder pain, Dislocates, Hx Lt Rotator Cuff Repair 2022 TECHNIQUE: Multiplanar, multisequence imaging of the left shoulder is performed without contrast. FINDINGS: Rotator Cuff: Persistent heterogeneity of the subscapularis tendon with increased signal particularly superior fibers. Full-thickness retracted tear of the supraspinatus tendon remains present with stum p retraction again seen. Heterogeneity and increased signal in the infraspinatus tendon redemonstrate d. Moderate atrophy of the supraspinatus and infraspinatus muscles is more prominent from prior. Acromioclavicular Joint: Moderate to severe narrowing and spurring is redemonstrated. Prominent infer ior fluid redemonstrated. Glenohumeral Joint: No significant spurring. Mild nonsimple fluid in the posterior recess of the nolan ohumeral joint is less prominent versus prior. New subchondral cystic change involving the posterior osseous glenoid. Labrum: Persistent superior labral tear similar to prior. Biceps Tendon: The long head of biceps remains in normal location within bicipital groove. Persistent increased signal in the intracapsular portion. More prominent surrounding fluid in the extracapsular portion is noted. Bone marrow signal: Susceptibility artifact from prior rotator cuff surgical repair is redemonstrated . Some new heterogeneous increased T2 signal involving the posterior lateral aspect of the humeral he ad into the humeral neck. Other: No additional significant abnormality is appreciated. IMPRESSION: 1. Large recurrent full-thickness retracted tear of the supraspinatus tendon is more prominent versus prior. Tendinosis of the infraspinatus tendon redemonstrated More prominent muscular atrophy of thes e muscles noted. 2. Persistent tendinosis/partial tearing of the subscapularis. 3. Superior labral tear redemonstrated. 4. New abnormal bone marrow edema involving the posterior lateral aspect of the left humeral head int o the left proximal humeral neck.
== END | disposition home or self-care (01) ==
LOC: RADMRIMAIN 14:34
PROVIDERS: ATTEND Orthopaedic Surgery
DX: M67.814 Other specified disorders of tendon, left shoulder (principal); M19.012 Primary osteoarthritis, left shoulder; M62.50 Muscle wasting and atrophy, not elsewhere classified, unspecified site; M75.112 Incomplete rotator cuff tear or rupture of left shoulder, not specified as traumatic; S46.002D Unspecified injury of muscle(s) and tendon(s) of the rotator cuff of left shoulder, subsequent encounter; Z47.89 Encounter for other orthopedic aftercare; M50.10 Cervical disc disorder with radiculopathy, unspecified cervical region; M47.22 Other spondylosis with radiculopathy, cervical region; M48.02 Spinal stenosis, cervical region; Z98.890 Other specified postprocedural states; X58.XXXD Exposure to other specified factors, subsequent encounter

== ENCOUNTER → 2023-07-22 | Outpatient (CLI) | payer BC, MEDICARE ==
--- NOTE | 2023-07-22 10:33 | CT ---
EXAMINATION TYPE: CT chest wo con DATE OF EXAM: 07/22/2023 COMPARISON: 02/04/2023 HISTORY: pulmonary nodule CT DLP: 459.[address] of the chest was performed with lung and mediastinal window settings submitted. The la ck of contrast limits evaluation of the vascular, mediastinal and parenchymal structures including th e upper abdomen. LUNGS: The lungs are clear and free of infiltrate. Severe emphysematous changes noted within the uppe r lobes. Again noted is a 4 mm pulmonary nodule within the lingula as well as a subpleural 4.7 mm nod ule left lower lobe image 52. Right-sided pulmonary nodule abutting the right major fissure currently measures 6.4 mm versus 9.7 mm previously. Continued follow-up is recommended. No pleural effusion. No CT evidence of interstitial lung disease. MEDIASTINUM/COOKIE: Thoracic aorta is of normal caliber with limited evaluation given lack of contrast . The heart is not enlarged. No evidence for mediastinal mass. No lymph nodes greater than 1cm. UPPER ABDOMEN: No significant abnormality is seen. OTHER: No significant other abnormality. IMPRESSION: 1. Pulmonary nodule within the right lung appears to have diminished in size. Other areas of nodular ity remain stable. Continued six-month follow-up is advised. 2. Severe upper lobe emphysematous changes.
== END | disposition home or self-care (01) ==
LOC: RADCTMAIN 09:22
PROVIDERS: ATTEND Internal Medicine Critical Care Medicine
DX: R91.1 Solitary pulmonary nodule (principal); J43.9 Emphysema, unspecified
CPT/HCPCS: 71250

== ENCOUNTER → 2023-12-29 | Outpatient (CLI) | payer BC ==
--- NOTE | 2023-12-29 15:24 | CT ---
EXAMINATION TYPE: CT chest wo con DATE OF EXAM: 12/29/2023 COMPARISON: 07/22/2023 CLINICAL INDICATION: Male, 63 years old with history of R91.1 PULMONARY NODULE; PHH, f/u nodules TECHNIQUE: CT scan of the thorax is performed without IV contrast. CT DLP: [address] CTDI: mGy Automated exposure control for dose reduction was used. FINDINGS: There are marked emphysematous changes.. The juxtapleural nodules associated with the right major fissure are stable. There are a few scattere d sub-4 mm nodules but no new or suspicious lung nodule. There is no airspace consolidation or abnormal interstitial density. There is no pleural effusion or pneumothorax. The great vessels the chest are normal as no mediastinal, hilar or axillary adenopathy. No focal osseous lesions are seen. Limited scanning through the upper abdomen reveals no gross abnormality. IMPRESSION: 1. Lung RADS category 2. Stable nodules as described above. 2. Marked emphysematous changes. 3. No acute cardiopulmonary disease. Follow-up recommendations for incidental pulmonary nodules are per [employer] or [employer]. [facility], , 12/29/2023 3:22 PM
== END | disposition home or self-care (01) ==
LOC: RADCTMAIN 14:43
PROVIDERS: ATTEND Internal Medicine Critical Care Medicine
DX: R91.1 Solitary pulmonary nodule (principal); J43.9 Emphysema, unspecified
CPT/HCPCS: 71250

== ENCOUNTER 2024-07-29 19:10 | Emergency (ER) | payer BC ==
[2024-07-29 19:15] VITALS: TEMP 98
--- NOTE | 2024-07-29 20:24 | ED ---
Skin/Abscess/FB HPI <Tavia - Last Filed: 07/29/24 23:41> - General Source: patient, family, RN notes reviewed, old records reviewed Mode of arrival: ambulatory Limitations: no limitations <Jefry Wooten - Last Filed: 07/30/24 00:04> - General Chief complaint: Skin/Abscess/Foreign Body Stated complaint: right arm painful and red Time Seen by Provider: 07/29/24 19:27 - History of Present Illness Initial comments: 64-year-old male presents with complaints of right hand pain. States for the last 24 hours he has had some increased warmth and stiffness in his right pinky which is caused pain for him. States he was eating dinner with his when she noticed a red streak on his arm extending from the hand up to the cubital fossa. Reports since then about 3 hours ago it is extended from the cubital fossa to near the axilla. 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 She has had similar symptoms to this before when one of the warts/rash on the soles of his feet got infected and he had a similar red streaking that went up his leg. Reports that time he went to the hospital and was given a course of antibiotics with res olution of his symptoms. Denies any other complaints or symptoms at this time. (Jefry Wooten) - Related Data Home Medications Medication Instructions Recorded Confirmed Potassium 198 mg PO DAILY 11/27/16 08/15/22 Rosuvastatin Calcium [Crestor] 20 mg PO DAILY 11/27/16 08/15/22 Tamsulosin HCl [Flomax] 0.4 mg PO DAILY 11/27/16 08/15/22 Aspirin EC [Ecotrin Low Dose] 81 mg PO DAILY 08/15/22 08/15/22 Cholecalciferol [Vitamin D3 (25 25 mcg PO DAILY 08/15/22 08/15/22 Mcg = 1000 Iu)] HYDROcodone/APAP 7.5-325MG [[place] 1 - 2 tab PO Q6H PRN 08/15/22 08/15/22 7.5-325] Meloxicam [Mobic] 15 mg PO DAILY 08/15/22 08/15/22 Metoprolol Succinate [Metoprolol 25 mg PO DAILY 08/15/22 08/15/22 Succinate ER] [place]-3/Dha/Epa/Fish Oil [Fish Oil 1 cap PO DAILY 08/15/22 08/15/22 1,000 mg Softgel] Ondansetron Odt [Zofran ODT] 4 mg PO Q6H PRN 08/15/22 08/15/22 lisinopriL [Zestril] 10 mg PO DAILY 08/15/22 08/15/22 tadalafiL 20 mg PO DAILY PRN 08/15/22 08/15/22 Previous Rx's Medication Instructions Recorded Clindamycin [Cleocin] 450 mg PO Q8H 7 Days #63 cap 07/29/24 Allergies Allergy/AdvReac Type Severity Reaction Status Date / Time cefazolin [From Kefzol] Allergy Swelling Verified 07/29/24 19:15 LYCRA AdvReac IN Uncoded 07/29/24 19:15 WAISTBANDS, TURN SKIN RED Review of Systems ROS Other: All systems not noted in ROS Statement are negative. <Tavia Saavedra - Last Filed: 07/29/24 23:41> ROS Other: All systems not noted in ROS Statement are negative. <Jefry Wooten - Last Filed: 07/30/24 00:04> ROS Statement: Those systems with pertinent positive or pertinent negative responses have been documented in the HPI. Past Medical History Past Medical History: Coronary Artery Disease (CAD), Eye Disorder, Hypertension, Pneumonia, Prostate Disorder, Respiratory Disorder Additional Past Medical History / Comment(s): HX LONG-TERM LUNG INFECTION IN PAST (PNA), DETACHED RETINA LT EYE History of Any Multi-Drug Resistant Organisms: None Reported Past Surgical History: Back Surgery, Heart Catheterization With Stent, Hernia Repair, Orthopedic Surgery Additional Past Surgical History / Comment(s): GUILLE ROTATOR CUFF REPAIR. 7 RETINAL SURG LT EYE, Cervical fusion X3, carpel tunnel release right wrist Past Anesthesia/Blood Transfusion Reactions: No Reported Reaction Date of Last Stent Placement:: 2006 Past Psychological History: No Psychological Hx Reported Smoking Status: Former smoker Past Alcohol Use History: Heavy Past Drug Use History: None Reported - Past Family History Mother Family Medical History: Cancer Additional Family Medical History / Comment(s): SKIN CA. Brother(s) Family Medical History: Coronary Artery Disease (CAD) Father Family Medical History: Coronary Artery Disease (CAD) <Jefry Wooten - Last Filed: 07/30/24 00:04> General Exam Limitations: no limitations <Jefry Wooten - Last Filed: 07/30/24 00:04> - General Exam Comments Initial Comments: GENERAL: In no apparent distress at the time of examination. Pleasant and cooperative. HEENT: Head is atraumatic, normocephalic. Pupils are equal, round, and reactive to light. Sclerae anicteric. Conjunctivae are clear. Mucus membranes of the mouth are moist. Neck is supple. RESPIRATORY: Clear to auscultation. No wheezes, rales, or rhonchi. No use of accessory muscles. Patient maintaining oxygen saturation greater than 92%. No chest wall tenderness is noted on palpation or with deep breathing. CARDIOVASCULAR: Regular rate and rhythm. S1 and S2 noted. No systolic or diastolic murmur auscultated. No JVD noted. No S3 or S4 noted. GASTROINTESTINAL: No distention noted. Abdomen soft and round. Normal active bowel sounds auscultated x 4 quadrants. No pain or tenderness noted upon palpation. INTEGUMENTARY: No cyanosis. No jaundice. . No cellulitis noted. EXTREMITIES: 2+ peripheral pulses. No evidence of peripheral edema. No calf tenderness noted. Stiffness, tenderness, erythema, and warmth of the right pinky.Streaking appreciated from the right hand coursing up to the mid bicep. PSYCHIATRIC: Awake, alert, and oriented X 3. Appropriate affect. Intact judgement and insight. (Jefry Wooten) Course Vital Signs 07/29/24 19:12 Temperature 98.0 F Pulse Rate 80 Respiratory 18 Rate Blood Pressure 144/89 O2 Sat by Pulse 97 Oximetry Medical Decision Making - Lab Data Result diagrams: 07/29/24 22:31 07/29/24 22:31 <Tavia Saavedra - Last Filed: 07/29/24 23:41> - Lab Data Result diagrams: 07/29/24 22:31 07/29/24 22:31 <Jefry Wooten - Last Filed: 07/30/24 00:04> - Medical Decision Making Was pt. sent in by a medical professional or institution (, PA, BRANDS EDITOR, urgent care, hospital, or skilled nursing...) When possible be specific @ -No Did you speak to anyone other than the patient for history (EMS, parent, family, police, friend...)? What history was obtained from this source @ -No Did you review nursing and triage notes (agree or disagree)? Why? @ -I reviewed and agree with nursing and triage notes Were old charts reviewed (outside hosp., previous admission, EMS record, old EKG, old radiological studies, urgent care reports/EKG's, skilled nursing records)? Report findings @ -No old charts were reviewed Differential Diagnosis? @ -Skin abscess versus cellulitis versus hematoma versus compartment syndrome, this is not meant to be fully inclusive list EKG interpreted by me (3pts min.). @ -As above X-rays interpreted by me (1pt min.). @ -X-ray of the right hand showed no acute fracture or osseous abnormalities. CT interpreted by me (1pt min.). @ -None done U/S interpreted by me (1pt. min.). @ -None done What testing was considered but not performed or refused? (CT, X-rays, U/S, labs)? Why? @ -None What meds were considered but not given or refused? Why? @ -None Did you discuss the management of the patient with other professionals (professionals i.e. , PA, BRANDS EDITOR, lab, RT, psych nurse, social work specialist, extraction supervisor, teacher, army officer, bottle caser)? Give summary @ -No Was smoking cessation discussed for >3mins.? @ -No Was critical care preformed (if so, how long)? @ -No Were there social determinants of health that impacted care today? How? (Homelessness, low income, unemployed, alcoholism, drug addiction, transportation, low edu. Level, literacy, decrease access to med. care, care home, rehab)? @ -No Was there de-escalation of care discussed even if they declined (Discuss DNR or withdrawal of care, Hospice)? DNR status @ -No What co-morbidities impacted this encounter? (DM, HTN, Smoking, COPD, CAD, Cancer, CVA, ARF, Chemo, Hep., AIDS, mental health diagnosis, sleep apnea, morbid obesity)? @ -None Was patient admitted / discharged? Hospital course, mention meds given and route, prescriptions, significant lab abnormalities, going to OR and other pertinent info. @ -64-year-old male presenting with complaints of right hand pain. Has had chronic dermatological abnormalities on the palms and soles for over 6 months, recently he had an infection from the base of his right foot that had streaking that went up the leg and at that time he went to the ED and received a prescription for antibiotics and with resolution of him symptoms. Patient had a similar onset of symptoms this time except stemming from the right hand with the addition of some tenderness and tautness of the right pinky. The streaking went up from the right hand to the mid bicep. X-ray of the right hand was ordered which showed no acute fracture or osseous abnormalities, CBC also completed without elevated blood white blood cell count. Patient was given 1 dose of clindamycin intravenous here and sent clindamycin oral to his pharmacy. Patient was advised to follow-up with his PCP in 1 to 2 days. Undiagnosed new problem with uncertain prognosis? @ -No Drug Therapy requiring intensive monitoring for toxicity (Heparin, Nitro, Insulin, Cardizem)? @ -No Were any procedures done? @ -No Diagnosis/symptom? @ -Cellulitis Acute, or Chronic, or Acute on Chronic? @ -Acute Uncomplicated (without systemic symptoms) or Complicated (systemic symptoms)? @ -Default Side effects of treatment? @ -No Exacerbation, Progression, or Severe Exacerbation? @ -No Poses a threat to life or bodily function? How? (Chest pain, [place], CA, pneumonia, PE, COPD, DKA, ARF, appy, cholecystitis, CVA, Diverticulitis, Homicidal, Suicidal, threat to staff... and all critical care pts) @ -No (Jefry Wooten) - Lab Data Lab Results 07/29/24 07/29/24 Range/Units 22:31 22:31 WBC 7.81 (4.50-10.00) 10*3/uL RBC 4.70 (4.40-5.60) 10*6/uL Hgb 15.4 (13.0-17.0) g/dL Hct 44.6 (39.6-50.0) % MCV 94.9 (80.0-97.0) fL MCH 32.8 H (27.0-32.0) pg MCHC 34.5 (32.0-37.0) g/dL Plt Count 229 (140-440) 10*3/uL MPV 8.9 L (9.5-12.2) fL Immature Gran % (Auto) 0.3 % Neutrophils % 60.4 % Lymphocytes % 18.8 % Monocytes % 13.6 % Eosinophils % 5.9 % Basophils % 1.0 % Immature Gran # 0.02 (0.00-0.04) 10*3/uL Neutrophils # 4.72 (1.80-7.70) 10*3/uL Lymphocytes # 1.47 (0.90-5.00) 10*3/uL Monocytes # 1.06 H (0.20-1.00) 10*3/uL Eosinophils # 0.46 H (0.04-0.35) 10*3/uL Basophils # 0.08 (0.00-0.10) 10*3/uL Sodium 134 L (137-145) mmol/L Potassium (3.5-5.1) mmol/L Chloride 103 (98-107) mmol/L Carbon Dioxide 20 L (22-30) mmol/L Anion Gap 11 mmol/L BUN 20 (9-20) mg/dL Creatinine 0.69 (0.66-1.25) mg/dL Est GFR (CKD-EPI)AfAm >90 (>60 ml/min/1.73 sqM) Est GFR (CKD-EPI)NonAf >90 (>60 ml/min/1.73 sqM) Glucose 92 (74-99) mg/dL Calcium 9.7 (8.4-10.2) mg/dL Total Bilirubin 2.9 H (0.2-1.3) mg/dL AST 99 H (17-59) U/L ALT 33 (4-49) U/L Alkaline Phosphatase 22 L (38-126) U/L Total Protein 9.2 H (6.3-8.2) g/dL Albumin 5.8 H (3.5-5.0) g/dL Disposition Is patient prescribed a controlled substance at d/c from ED?: No <Tavia Saavedra - Last Filed: 07/29/24 23:41> <Jefry Wooten - Last Filed: 07/30/24 00:04> Clinical Impression: Cellulitis Disposition: HOME SELF-CARE Condition: Good Instructions (If sedation given, give patient instructions): Cellulitis (ED) Additional Instructions: Every disease is a spectrum and a small chance still exists that a serious condition could develop, for this reason, please monitor yourself closely for new, changing or worsening symptoms, symptoms that persist beyond 48 hours, redness that spreads or continues to spread beyond 24 hours after starting an biotics, nausea, vomiting, shaking chills or bodyaches, inability to bend your finger, worsening swelling of your finger or unable to control your pain at home with home pain medications, fever, inability to tolerate/keep down fluids or your medications, inability to follow up with outpatient providers as instructed and should you experience these symptoms or should you have any further concerns for your wellbeing please return to the ED or call 911 immediately. PLEASE call your primary care physician as soon as possible to arrange / discuss plan for followup appointment. Appointment in the next 1-3 days is strongly enco uraged if possible. PLEASE let us know here before you leave if there is anything further we can do to be of any assistance. Take care and feel Better! Prescriptions: Clindamycin [Cleocin] 450 mg PO Q8H 7 Days #63 cap Referrals: Lj Max DO [Primary Care Provider] - 1-2 days
--- NOTE | 2024-07-29 20:42 | XR ---
EXAMINATION TYPE: XR hand complete RT DATE OF EXAM: 07/29/2024 8:37 PM INDICATION: Patient age:Male; 64 years old; Reason for study: R hand pain; PHH. pain COMPARISON: Right hand radiograph 06/13/2019 TECHNIQUE: Frontal, lateral and oblique views of the right hand were obtained. FINDINGS: Normal alignment of the visualized joints. No acute osseous pathology is identified. No os seous erosions. No evidence of soft tissue swelling. No radiopaque foreign body. IMPRESSION: No acute osseous pathology. [facility], , 07/29/2024 8:40 PM
[2024-07-29 22:40] LABS: Basophils # (A) 0.08 10*3/uL (0.00-0.10); Eosinophils # (A) 0.46 10*3/uL (0.04-0.35); Eosinophils % (A) 5.9 %; HCT 44.6 % (39.6-50.0); HGB 15.4 g/dL (13.0-17.0); Lymphocytes # (A) 1.47 10*3/uL (0.90-5.00); Lymphocytes % (A) 18.8 %; MCH 32.8 pg (27.0-32.0); MCHC 34.5 g/dL (32.0-37.0); MCV 94.9 fL (80.0-97.0); Mean Platelet Volume 8.9 fL (9.5-12.2); Monocytes # (A) 1.06 10*3/uL (0.20-1.00); Monocytes % (A) 13.6 %; Neutrophils # (A) 4.72 10*3/uL (1.80-7.70); Neutrophils % (A) 60.4 %; Platelet Count 229 10*3/uL (140-440); RDW 12.6 % (11.5-14.5); WBC 7.81 10*3/uL (4.50-10.00)
[2024-07-29 22:57] LABS: ALT 33 U/L (4-49); AST 99 U/L (17-59); African American GFR (CKD) >90 (>60 ml/min/1.73 sqM); Albumin 5.8 g/dL (3.5-5.0); Alkaline Phosphatase 22 U/L (38-126); Anion Gap 11 mmol/L; Blood Urea Nitrogen 20 mg/dL (9-20); Calcium 9.7 mg/dL (8.4-10.2); Carbon Dioxide 20 mmol/L (22-30); Chloride 103 mmol/L (98-107); Glucose 92 mg/dL (74-99); Non-African American GFR(CKD) >90 (>60 ml/min/1.73 sqM); Sodium 134 mmol/L (137-145); Total Bilirubin 2.9 mg/dL (0.2-1.3); Total Protein 9.2 g/dL (6.3-8.2)
[2024-07-29] MEDS: CLINDAMYCIN 600 MG in DEXTROSE 5% IN WATER 50 ML IVPB ONE (23:59)
[2024-07-30 01:04] VITALS: BP 168/94; PULSE 65; RESP 17
== END 2024-07-30 01:04 | disposition home or self-care (01) ==
LOC: EC 19:10
DX: L03.113 Cellulitis of right upper limb (principal); Z87.891 Personal history of nicotine dependence; Z88.1 Allergy status to other antibiotic agents; Z88.8 Allergy status to other drugs, medicaments and biological substances
CPT/HCPCS: 36415; 80053; 85025; 96365; 99283